=== PATIENT | female | born 1940 | race Caucasian/White ===

== ENCOUNTER → 2016-08-15 | Outpatient (CLI) | payer MEDICARE, OTHER ==
[~2016-08-15] MED LIST: ASPIRIN81 MG PO; CALCARB 600 W-1 EACH PO; COREG6.25 MG PO; CRESTOR10 MG PO
== END | disposition short-term general hospital (02) ==
LOC: CLONCO 07:00
DX: Z08 Encounter for follow-up examination after completed treatment for malignant neoplasm (principal); F41.9 Anxiety disorder, unspecified; Z85.038 Personal history of other malignant neoplasm of large intestine; Z90.49 Acquired absence of other specified parts of digestive tract

== ENCOUNTER → 2016-08-31 | Outpatient (CLI) | payer MEDICARE, OTHER | END | disposition short-term general hospital (02) | LOC: CLORTH 01:20 | DX: M17.12 Unilateral primary osteoarthritis, left knee (principal); M25.561 Pain in right knee | CPT/HCPCS: J1100 ==